=== PATIENT | female | born 1980 | race African-American/Black ===

== ENCOUNTER 2020-10-14 21:34 | Emergency (ER) | payer BC, SELFPAY ==
[2020-10-14] VITALS (8 sets, daily range): BP systolic 163–184; BP diastolic 107–138; PULSE 65–88; RESP 16–32; O2SAT 96–98
--- NOTE | ~2020-10-14 | XR_ITS ---
EXAMINATION: XR chest 1V portable 10/14/2020 22:06 INDICATION: Shortness of breath. Congestion. PROCEDURE: AP portable chest COMPARISON: No prior studies for comparison. FINDINGS: The lungs are clear. The cardiomediastinal silhouette is within normal limits. There are no pleural effusions. There is no pneumothorax suspected. IMPRESSION: 1: NO ACUTE CARDIOPULMONARY DISEASE. Reviewed, dictated and finalized at location A. ER EXAMINER
--- NOTE | 2020-10-14 21:44 | ECG_ITS ---
Measurements Intervals [place] Rate: 76 P: 81 CT: 155 QRS: 84 QRSD: 88 T: 73 QT: 445 QTc: 501 Interpretive Statements SINUS RHYTHM WITH SINUS ARRHYTHMIA LEFT ATRIAL ENLARGEMENT BASELINE ARTIFACT- I, II BORDERLINE ECG Electronically Signed On 10-15-2020 7:35:51 [employer] ADMINISTRATOR by Flaco Marlow D.O.
--- NOTE | 2020-10-14 21:45 | ED.GENADULT ---
HPI - General Adult General Chief complaint: Shortness of Breath/Dyspnea Stated complaint: SOB, wheezing Time Seen by Provider: 10/14/20 21:37 Source: patient History of Present Illness HPI narrative: Patient is a 40 y/o female complaining of severe shortness of breath starting 2 hours ago. She states the she woke up from a nap feeling very short of breath. She states that she drank some water and Pepsi and felt slightly better. She has a slight a cough. She denies any fever or chest pain. She was given Neb and Solumedrol by EMS. Related Data Allergies Allergy/AdvReac Type Severity Reaction Status Date / Time No Known Allergies Allergy Verified 10/14/20 22:37 Review of Systems Constitutional: Constitutional: Denies chills, Denies fever(s), Denies headache(s) and Denies weakness Eyes: Eyes: Denies blurry vision ENT: Denies headache(s) and Denies neck pain Cardiovascular: Cardiovascular: Denies chest pain and Reports dyspnea Respiratory: Respiratory: Reports cough and Reports dyspnea Gastrointestinal: Gastrointestinal: Denies abdominal pain, Denies diarrhea, Denies nausea and Denies vomiting Genitourinary: Genitourinary: Denies hematuria and Denies dysuria Musculoskeletal: Musculoskeletal: Denies back pain and Denies neck pain Neurologic: Denies headache(s) and Denies weakness PMFSH Social History Social History Gender identity (if verbalized by the patient): Female Exam Const: General: no acute distress and well developed Orientation/consciousness: oriented to person, oriented to place, oriented to time and patient oriented x3 HENMT: Head: normocephalic Ears: external ears normal General nose exam: Normal external nose present Eyes: General: appearance normal, both eyes and all related structures Conjunctivae: conjunctivae normal Neck: Neck: normal visual inspection and full ROM Chest: Chest palpation & inspection: normal inspection of the chest and no tenderness Resp: Effort & Inspection: tachypneic Auscultation: wheezes Cardio: Rate: regular rate Rhythm: regular rhythm GI: GI Palp: No abdominal tenderness and Yes Soft to palpation Skin: General skin exam: normal color and turgor normal Neuro: General: oriented to person, oriented to place, oriented to time and patient oriented x3 Cognition (Neuro): normal cognition Extrem: General: normal to inspection, full ROM and no pedal edema Psych: Appearance: grossly normal Mental Status: mental status grossly normal Affect: normal affect Course Reevaluation(s) Reevaluation #1: Rechecked patient. She states that she feels better. Discussed with patient about hypertension. She states was diagnosed with hypertension years ago, but she has not had BP checked in a long time. She does not have a doctor and does not take any meds for BP. Instructed patient to take meds and follow up for further care. Date: 10/14/20 Time: 23:35 Vital Signs Vital signs: Vital Signs Pulse Rate 88 10/14/20 21:34 Respiratory Rate 23 H 10/14/20 21:34 Blood Pressure 173/111 H 10/14/20 21:34 Pulse Oximetry 96 10/14/20 21:34 Pulse Rate 65 10/14/20 23:30 Respiratory Rate 18 10/14/20 23:30 Blood Pressure 163/107 H 10/14/20 23:30 Pulse Oximetry 98 10/14/20 23:30 Medical Decision Making Vital Signs Vital Signs: Vital Signs Pulse Rate 88 10/14/20 21:34 Respiratory Rate 23 H 10/14/20 21:34 Blood Pressure 173/111 H 10/14/20 21:34 Pulse Oximetry 96 10/14/20 21:34 Pulse Rate 65 10/14/20 23:30 Respiratory Rate 18 10/14/20 23:30 Blood Pressure 163/107 H 10/14/20 23:30 Pulse Oximetry 98 10/14/20 23:30 Lab Data Result diagrams: 10/14/20 22:06 10/14/20 22:04 Labs: Lab Results 10/14/20 10/14/20 10/14/20 Range/Units 22:04 22:06 22:06 WBC 11.6 H (4.5-10.0) K/mm3 RBC 4.28 (4.2-5.4) M/mm3 Hgb 14.8 (12.0-15.0) g/dL Hct
[2020-10-14 22:14] LABS: Basophils Absolute Auto 0.1 K/mm3 (0.0-0.1); Basophils Percent Auto 0.6 % (0.2-1.2); Eosinophils Absolute Auto 1.4 K/mm3 (0-0.3); Eosinophils Percent Auto 12.1 % (0-4.4); Hematocrit 43.2 % (37.0-47.0); Hemoglobin 14.8 g/dL (12.0-15.0); Immature Granulocyte Absolute 0.03 K/mm3 (0.00-0.031); Immature Granulocyte Percent A 0.3 % (0-0.5); Lymphocytes Absolute Auto 2.83 K/mm3 (0.9-3.2); Lymphocytes Percent Auto 24.5 % (18.3-44.2); Mean Corpuscular HGB Conc 34.3 g/dl (32-36); Mean Corpuscular Hemoglobin 34.6 pg (26-34); Mean Corpuscular Volume 100.9 fl (80-100); Mean Platelet Volume 9.1 fl (7.4-10.4); Monocytes Absolute Auto 0.4 K/mm3 (0.1-0.6); Monocytes Percent Auto 3.7 % (2.6-8.5); Neutrophils Absolute Auto 6.8 K/mm3 (1.3-6.7); Neutrophils Percent Auto 58.8 % (45.5-73.1); Platelet Count Result 250 k/mm3 (150-375); Red Blood Count 4.28 M/mm3 (4.2-5.4); White Blood Count 11.6 K/mm3 (4.5-10.0)
[2020-10-14 22:26] LABS: D Dimer 0.31 ug/mL (<0.48)
[2020-10-14 22:27] LABS: Alanine Aminotransferase 17 U/L (4-35); Albumin Level 4.7 g/dL (3.5-5.1); Alkaline Phosphatase 85 U/L (38-126); Anion Gap 7 mmol/L (8-16); Aspartate Amino Transferase 31 U/L (14-36); Bilirubin,Total 0.4 mg/dL (0.2-1.3); Blood Urea Nitrogen 10 mg/dL (7-17); Calcium 8.6 mg/dL (8.4-10.2); Carbon Dioxide 28 mmol/L (22-30); Chloride 101 mmol/L (98-107); Estimated CRCL calculation 96 ml/min; Estimated Glomerular Filt Rate > 60; Glucose 149 mg/dL (65-105); Potassium 3.6 mmol/L (3.4-5.0); Sodium 136 mmol/L (137-145)
[2020-10-14 22:35] LABS: NT Pro B Type Natriuretic Pept 97 PG/ML (5-100)
[2020-10-14] MEDS: amLODIPine BESYLATE 5 MG TABLET 10 MG PO (22:38)
--- NOTE | 2020-10-14 23:02 | PC.NURSE ---
I did not do the EKG but charted it.
[2020-10-14] MEDS: hydroCHLOROthiazide 25 MG TABLET PO (23:36)
[2020-10-14] MEDS: lisinopriL 20 MG TABLET PO (23:36)
[2020-10-14 23:51] LABS: Add Urine Microscopic? YES; Appearance Urine Clear (Clear); Bacteria Urine Trace /hpf; Bilirubin Urine Negative (Negative); Blood Urine Negative (Negative); Color Urine Straw (Yellow); Glucose Urine UA Negative (Negative); Ketones Urine Negative (Negative); Leukocyte Esterase Ur Negative LEU/UL (Negative); Mucus Urine Rare /lpf; Nitrate Urine Negative (Negative); Protein Urine 2+ mg/dL (Negative); RBC Urine 0-2 /hpf (0-2); Specific Grav Ur 1.014 (1.001-1.035); Squamous Epithelial Cell Urine Moderate /hpf (Few); Urobilinogen Urine Negative mg/dL (<2.0); WBC Urine 0-3 /hpf
[2020-10-15 01:05] VITALS: BP 165/104; PULSE 65; RESP 16; TEMP 36.7; O2SAT 98
[2020-10-15 16:30] LABS: SARS-CoV-2 RNA PCR Negative
== END 2020-10-15 01:06 | disposition home or self-care (01) ==
PROVIDERS: Emergency Provider Emergency Medicine
DX: Z20.828 Contact with and (suspected) exposure to other viral communicable diseases (principal); J98.01 Acute bronchospasm; I10 Essential (primary) hypertension; R00.0 Tachycardia, unspecified
CPT/HCPCS: 36415; 71045; 80053; 81001; 81025; 83880; 85025; 85380; 87635; 93005; 99283; A9270; C9803; U0003